=== PATIENT | female | born 1965 | race Caucasian/White ===

== ENCOUNTER 2020-01-14 09:31 | Outpatient (CLI) | payer OTHER, SELFPAY ==
--- NOTE | ~2020-01-14 | MM_ITS ---
EXAMINATION: MM screening maylin BI w chandan HISTORY: Screening TECHNIQUE: Craniocaudal and mediolateral oblique 3-D tomosynthesis images were obtained and synthetic 2-D images were generated. CAD analysis was submitted and interpreted. COMPARISON: Comparison to multiple prior studies sequentially, with oldest reviewed study dated 10/2015. BREAST PARENCHYMAL COMPOSITION: There are scattered areas of fibroglandular density. FINDINGS: There is no evidence of suspicious mass, calcification, or architectural distortion to sugg est malignancy in either breast. There has been no suspicious interval change. IMPRESSION: 1. No mammographic evidence of malignancy. 2. Recommend routine screening mammography in one year. BI-RADS Category 1: Negative Reviewed, dictated and finalized at location A.
== END 2020-01-14 09:32 | disposition home or self-care (01) ==
LOC: ANHIMG 09:32
PROVIDERS: PCP Nurse Practitioner Family; Visit Provider Nurse Practitioner Family
DX: Z12.31 Encounter for screening mammogram for malignant neoplasm of breast (principal)
CPT/HCPCS: 77063; 77067

== ENCOUNTER 2021-01-17 16:54 | Outpatient (CLI) | payer OTHER, SELFPAY ==
--- NOTE | ~2021-01-17 | MM_ITS ---
EXAMINATION: MM screening amylin BI w chandan HISTORY: Screening mammogram TECHNIQUE: Craniocaudal and mediolateral oblique 3-D tomosynthesis images were obtained and synthetic 2-D images were generated. CAD analysis was submitted and interpreted. COMPARISON: 01/14/2020 bilateral digital screening mammogram 05/08/2019 and 09/30/2018 diagnostic right mammogram and limited right breast ultrasound examination 09/16/2018, 02/13/2017 bilateral digital screening mammogram examinations BREAST PARENCHYMAL COMPOSITION: There are scattered areas of fibroglandular density. FINDINGS: Stable mild fibroglandular asymmetry. There is a stable circumscribed low-density 4 mm roun ded benign-appearing opacity opacity in the anterior mid inner right breast. There is no evidence of suspicious mass, calcification, or architectural distortion to suggest malignancy in either breast. T here has been no suspicious interval change. IMPRESSION: 1. No mammographic evidence of malignancy. 2. Recommend routine screening mammography in one year. BI-RADS Category 2: Benign finding(s). Reviewed, dictated and finalized at location A.
== END 2021-01-17 16:55 | disposition home or self-care (01) ==
LOC: ANHIMG 16:55
PROVIDERS: PCP Nurse Practitioner Family; Visit Provider Nurse Practitioner Family
DX: Z12.31 Encounter for screening mammogram for malignant neoplasm of breast (principal)
CPT/HCPCS: 77063; 77067

== ENCOUNTER 2022-04-04 10:25 | Outpatient (CLI) | payer OTHER, SELFPAY ==
--- NOTE | ~2022-04-04 | MM_ITS ---
EXAMINATION: MM screening maylin BI w chandan HISTORY: Screening TECHNIQUE: Craniocaudal and mediolateral oblique 3-D tomosynthesis images were obtained and synthetic 2-D images were generated. CAD analysis was submitted and interpreted. COMPARISON: Comparison to multiple prior studies sequentially, with oldest reviewed study dated 02/13. BREAST PARENCHYMAL COMPOSITION: There are scattered areas of fibroglandular density. FINDINGS: There is a new mass in the lower inner quadrant of the left breast measuring 4 mm. The righ t breast is stable without evidence for malignancy. IMPRESSION: 1. New left breast mass involving the lower inner quadrant anteriorly. 2. Additional mammographic views and possible breast ultrasound are recommended. BI-RADS Category 0: Incomplete: Needs additional imaging evaluation. Reviewed, dictated and finalized at location A. IMPRESSION: 1. New left breast mass involving the lower inner quadrant anteriorly. 2. Additional mammographic views and possible breast ultrasound are recommended . BI-RADS Category 0: Incomplete: Needs additional imaging evaluation.
== END 2022-04-04 10:26 | disposition home or self-care (01) ==
LOC: ANHIMG 10:28
PROVIDERS: PCP Nurse Practitioner Family; Visit Provider Nurse Practitioner Family
DX: Z12.31 Encounter for screening mammogram for malignant neoplasm of breast (principal); R92.8 Other abnormal and inconclusive findings on diagnostic imaging of breast
CPT/HCPCS: 77063; 77067

== ENCOUNTER 2022-05-01 13:10 | Outpatient (CLI) | payer OTHER, SELFPAY ==
--- NOTE | ~2022-05-01 | MMUS_ITS ---
EXAMINATION: MM diagnostic maylin LT w chandan, US breast LT limited HISTORY: New 4 mm left breast mass reported in anterior aspect of lower inner quadrant left breast on 04/04/2022 screening mammogram TECHNIQUE: Additional 3-D tomosynthesis images of the left breast were performed and synthetic 2-D im ages were generated. CAD analysis was submitted and interpreted. High resolution targeted 9:00 left b reast ultrasound was performed. COMPARISON: 04/04/2022 bilateral screening mammogram FINDINGS: MAMMOGRAPHIC FINDINGS: Approximately 3.7 x 5 mm circumscribed opacity is confirmed in the anterior aspect of the inner mid r ight breast at approximately 9:00 position 6 cm from nipple. The mammographic features suggest benign process, possibly cysts. ULTRASOUND: Left breast 9:00: 4.8 x 2.3 x 3.9 mm sonolucency with through transmission and no internal vascularit y, consistent with benign simple cyst. IMPRESSION: 1. Benign 4.8 mm cyst at left breast 9:00 position 6 cm from nipple 2. Routine annual mammographic screening is recommended BI-RADS Category 2: Benign finding(s). Reviewed, dictated and finalized at location A. 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 Benign 4.8 mm cyst at left breast 9:00 position 6 cm from nipple 2. Routine annual mammographic screening is recommended BI-RADS Category 2: Benign finding(s).
== END 2022-05-01 13:11 | disposition home or self-care (01) ==
PROVIDERS: PCP Nurse Practitioner Family; Visit Provider Nurse Practitioner Family
DX: R92.8 Other abnormal and inconclusive findings on diagnostic imaging of breast (principal); N60.02 Solitary cyst of left breast
CPT/HCPCS: 76642; 77061; 77065; G0279

== ENCOUNTER 2022-11-06 12:26 | Outpatient (CLI) | payer OTHER, SELFPAY ==
--- NOTE | ~2022-11-06 | DEXA_ITS ---
Bone Density Report Name: LENIN LEONARD Age: 56 Sex: Female Ethnicity: White Date of : 1965 Indication: postmenopausal; screening for osteoporosis; Referring Provider: MICHAEL, HAILEE Angulo Study: Bone densitometry was performed. Exam Date: November 06, 2022 Accession number: [id number] Bone Density: Region BMD T-score Z-score Classification AP Spine(L1, L2, L3) 0.913 -1.0 0.3 Normal Femoral Neck (Left) 0.650 -1.8 -0.6 Osteopenia Total Hip (Left) 0.840 -0.8 0.0 Normal Femoral Neck (Right) 0.640 -1.9 -0.7 Osteopenia Total Hip (Right) 0.816 -1.0 -0.2 Normal Total Hip Mean 0.828 -0.9 -0.1 Normal World Health Organization criteria for BMD impression classify patients as: Normal (T-score at or above -1.0), Osteopenia (T-score between -1.0 and -2.5), or Osteoporosis (T-score at or below -2.5). 10-year Fracture Risk(1): Major Osteoporotic Fracture 8.3% Hip Fracture 0.9% Reported Risk Factors: [place] (), Neck BMD=0.640, BMI=30.7 (1) FRAX(R) Version 3.08. Fracture probability calculated for an untreated patient. Fracture probability may be lower if the patient has received treatment. Clinical Information Provided by Patient: Has used the following medications: Vitamin D Patient maximum height was 62 Menopause Age: 53 Does not regularly consume dairy products Onset of menses at age 11 Number of children 0 Impression: The patient has low bone mass, based on the Right Femoral Neck T-score. The patient has an estimated ten-year risk of hip fracture of 0.9% and an estimated ten-year risk of major fracture of 8.3%, based on the WHO FRAX algorithm. Discussion: BONE DENSITY IS LOW AT ONE OR MORE SKELETAL SITES. This patient's lowest T-score is low at one or more skeletal sites. It meets the World Health Organization's (WHO) criteria for ?low bone mass? (T-score between -1.0 and -2.5). The patient's 10-year risk of fracture as calculated by FRAX is less than the threshold where pharmacological therapy is recommended by the National Osteoporosis Foundation (NOF). However, all treatment decisions require clinical judgment and consideration of individual patient factors, including patient preferences, comorbidities, previous drug use, risk factors not captured in the FRAX model (e.g., frailty, falls, vitamin D deficiency, increased bone turnover, interval significant decline in bone density) and possible under or overestimation of fracture risk by FRAX. The patient should follow a healthful lifestyle (good nutrition with adequate calcium and vitamin D, and appropriate weight-bearing exercise). Follow-Up: Consider repeating this study in 2 to 3 years to reassess this patient's status, or sooner if there is some new clinical indication. Reported by: [facility] on 11/06/2022 12:47:00 PM.
== END 2022-11-06 12:27 | disposition home or self-care (01) ==
PROVIDERS: PCP Nurse Practitioner Family; Visit Provider Nurse Practitioner Family
DX: M85.9 Disorder of bone density and structure, unspecified (principal); Z78.0 Asymptomatic menopausal state
CPT/HCPCS: 77080

== ENCOUNTER 2023-07-16 14:45 | Outpatient (CLI) | payer OTHER, SELFPAY ==
--- NOTE | ~2023-07-16 | MM_ITS ---
EXAMINATION: MM screening [facility] BI w chandan HISTORY: Screening mammogram TECHNIQUE: Craniocaudal and mediolateral oblique 3-D tomosynthesis images were obtained and synthetic 2-D images were generated. CAD analysis was submitted and interpreted. COMPARISON: 05/01/2022, 04/04/2022, 01/17/2021 BREAST PARENCHYMAL COMPOSITION: There are scattered areas of fibroglandular density. FINDINGS: No suspicious mass, calcification, or architectural distortion are identified in either jose ast to suggest malignancy. There has been no suspicious interval change. IMPRESSION: 1. No mammographic evidence of malignancy. 2. Recommend routine screening mammography in one year. BI-RADS Category 1: Negative Reviewed, dictated and finalized at location A. 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
== END 2023-07-16 14:46 | disposition home or self-care (01) ==
PROVIDERS: PCP Nurse Practitioner Family; Visit Provider Nurse Practitioner Family
DX: Z12.31 Encounter for screening mammogram for malignant neoplasm of breast (principal)
CPT/HCPCS: 77063; 77067

== ENCOUNTER 2024-06-05 09:57 | Outpatient (CLI) | payer OTHER, SELFPAY ==
--- NOTE | 2024-06-05 | EST_ITS ---
Patient Info Name: Manjula Wills Age: 58 years : 1965 Gender: Female Ht: 62 in Wt: 174 lbs BSA: 1.89 m2 HR: 67 bpm BP: 130 / 76 mmHg Exam Date: 06/05/2024 11:39 AM Exam Location: Echo Lab Patient Status: Outpatient Admit Date: 06/05/2024 Staff Ordering Physician: Gisela Meeks NP Attending Provider: Gisela Meeks NP Exercise Technologist: Melida Tejada RDCS Exercise Physician: Joseph Gan DO Exam Type: CA stress test treadmill Study Info A treadmill exercise stress test was performed. Summary 1. 1. Negative Thaddeus exercise stress test for ischemic ST changes by ECG criteria. 2. 2. Poor functional capacity, achieving 5.6 METs of workload. 3. 3. Rapid HR response to exercise. 4. 4. Appropriate HR recovery at 1 minute post exercise. 5. 5. No imaging with stress testing. 6. 6. Patient informed of the above results. Protocol: Thaddeus Stress ECG Details Stage: REST Duration (min): 0 min : 43 sec Speed (mph): 0.0 Grade (%): 0 HR (bpm): 69 SBP (mmHg): 130 DBP (mmHg): 76 METS: --- Stage: REST Duration (min): 7 min : 53 sec Speed (mph): 0.0 Grade (%): 0 HR (bpm): 71 SBP (mmHg): 130 DBP (mmHg): 76 METS: --- Stage: STAGE 1 Duration (min): 1 min : 0 sec Speed (mph): 1.7 Grade (%): 10 HR (bpm): 111 SBP (mmHg): 130 DBP (mmHg): 76 METS: --- Stage: STAGE 1 Duration (min): 2 min : 0 sec Speed (mph): 1.7 Grade (%): 10 HR (bpm): 133 SBP (mmHg): 130 DBP (mmHg): 76 METS: --- Stage: STAGE 1 Duration (min): 3 min : 0 sec Speed (mph): 1.7 Grade (%): 10 HR (bpm): 140 SBP (mmHg): 173 DBP (mmHg): 94 METS: --- Stage: STAGE 2 Duration (min): 0 min : 30 sec Speed (mph): 2.5 Grade (%): 12 HR (bpm): 144 SBP (mmHg): 173 DBP (mmHg): 94 METS: --- Stage: RECOVERY Duration (min): 0 min : 29 sec Speed (mph): 0.0 Grade (%): 0 HR (bpm): 136 SBP (mmHg): 173 DBP (mmHg): 94 METS: --- Stage: RECOVERY Duration (min): 1 min : 29 sec Speed (mph): 0.0 Grade (%): 0 HR (bpm): 112 SBP (mmHg): 144 DBP (mmHg): 90 METS: --- Stage: RECOVERY Duration (min): 2 min : 29 sec Speed (mph): 0.0 Grade (%): 0 HR (bpm): 98 SBP (mmHg): 144 DBP (mmHg): 90 METS: --- Stage: RECOVERY Duration (min): 3 min : 29 sec Speed (mph): 0.0 Grade (%): 0 HR (bpm): 84 SBP (mmHg): 164 DBP (mmHg): 87 METS: --- Stage: RECOVERY Duration (min): 4 min : 29 sec Speed (mph): 0.0 Grade (%): 0 HR (bpm): 83 SBP (mmHg): 164 DBP (mmHg): 87 METS: --- Stage: RECOVERY Duration (min): 4 min : 52 sec Speed (mph): 0.0 Grade (%): 0 HR (bpm): 80 SBP (mmHg): 135 DBP (mmHg): 84 METS: --- Rest HR: 71 bpm Peak HR: 144 bpm Rest Sys BP: 130 mmHg Peak Sys BP: 173 mmHg Max Pred HR: 160 bpm % Max Pred HR: 90 % Target HR: 136 bpm Max RPP: 24,912 bpm*mmHg Hall Score: -1 Termination Reason: Reached target heart rate or workload Cardiac Symptoms: Shortness of breath Max ST Seg Deviation: -1.00 mm Total Time: 3 min : 30 sec Rest Hanley BP: 76 mmHg Peak Hanley BP: 94 mmHg Angina Score: None Total METS: 5.6 Resting ECG Sinus rhythm. Stress ECG No ST changes. Arrhythmias None. Report Signatures
--- NOTE | 2024-06-05 11:20 | ECG_ITS ---
Test Date: 2024-06-05 12:05:57 Measurements Intervals [place] Rate: 73 P: 55 WV: 159 QRS: 4 QRSD: 74 T: 13 QT: 398 QTc: 439 Interpretive Statements SINUS RHYTHM NONSPECIFIC ST & T-WAVE ABNORMALITY No previous ECG available for comparison Electronically Signed On 06-05-2024 18:44:40 DOOR CLAMPER by Marsha Ambrose M.D.
== END 2024-06-05 09:58 | disposition home or self-care (01) ==
PROVIDERS: PCP Nurse Practitioner Family; Visit Provider Nurse Practitioner Family
DX: I10 Essential (primary) hypertension (principal); E78.5 Hyperlipidemia, unspecified; Z82.49 Family history of ischemic heart disease and other diseases of the circulatory system
CPT/HCPCS: 93005; 93017

== ENCOUNTER 2024-07-15 08:03 | Outpatient (CLI) | payer OTHER, SELFPAY ==
--- OUTSIDE RECORDS SUMMARY | 2024-07-16 21:34 | XMS_ITS | CONTINUITY OF CARE DOCUMENT ---
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
[2024-08-06 14:26] VITALS: BMI 31.8
--- NOTE | 2024-08-06 14:26 | P.SLEEP_ITS ---
Sleep Study - Home Unattended Date of Study: 07/15/24 Ordering Provider: Gisela Meeks NP Interpreting Provider: Therese Ott, DO Home Sleep Study Type: Watch PAT Height: 1.57 m Weight: 78.925 kg Body Mass Index: 31.8 Neck Circumference (inches): 15 [place]: 16 Reason for Sleep Study Daytime hypersomnia Sleep History The patient is a 58-year-old female that had a sleep study ordered by her primary care for evaluation of sleep apnea. The patient occasionally awakens from sleep short of breath. She occasionally awakens at night with heartburn, belching or cough. She occasionally snores but is rarely loud enough that others complain. She frequently has trouble sleeping when she has a cold. She occasionally wakes up gasping for air throughout the night. She occasionally has breathing problems at night observed by herself or others. She rarely sweats excessively at night. She occasionally has heart palpitations or irregular heartbeats during the night. She frequently falls asleep during the d ay but rarely while driving. She denies cataplexy. She occasionally has trouble at school or work due to sleepiness. She rarely feels unable to move while waking up or falling asleep. She occasionally experiences vivid dreamlike scenes upon awakening or falling asleep. She denies feeling afraid of going to sleep. She frequently has nightmares. She frequently remembers her dreams. She frequently has thoughts racing through her mind. She occasionally feels sad or depressed. She frequently has anxiety. He rarely has muscular tension. She occasionally notices parts of her body jerk. She frequently kicks during the night. She occasionally has crawling and aching feelings in her legs and occasionally has leg pain during the night. She denies grinding her teeth during sleep occasionally awakens with morning jaw pain. She is frequently bothered by pain during the day but rarely awakened by pain during the night. She occasionally wakes up feeling stiff in the morning. She occasionally wakes up with sore or achy muscles. She frequently wakes up with pain in the neck, spine and other joints. She goes to bed at 1:30 a.m. on both weekdays and weekends. It takes her less than 15 minutes to fall asleep. She wakes up twice throughout the night to urinate is able to fall back asleep within 45 minutes. She wakes up between 7-9 a.m. on both weekdays and weekends. She typically gets 7 8 hours of sleep per night. She will stay in bed for 30 minutes after waking up in the morning. She currently lives with her mother and brother. She denies consuming any caffeinated beverages within 2 hours of bedtime. She denies engaging in physical exercise before bedtime. She will read before falling asleep. She denies watching television before falling asleep. He will take naps in afternoon or the evening with they are not refreshing. She consumes up to 2 caffeinated beverages per day. She denies tobacco, alcohol and recreational drug use. REPLACED BY [facility] Past Medical History Medical History Prediabetes Hypersomnia Snoring Trigger finger Family history of early CAD Encounter to establish care Hypothyroid BMI 31.0-31.9,adult Osteopenia Thyroid disorder HTN (hypertension) Hyperlipidemia Asthma Arthritis Seasonal allergies Surgical History Surgical History Salivary gland tumor Family History Family History Sibling Family history of allergic disorder Hypertension Father Family history of chronic obstructive pulmonary disease Heart disease Thyroid disease Mother Asthma Depression Hypertension Cerebrovascular accident Sibling Heart disease Hypertension Thyroid disease Grandparent Asthma Cerebrovascular accident Grandparent Heart disease Social History Social History Smoking status: Never smoker Alcohol intake: never Substance use: never Medications Home Medications ?Medication ?Instructions ?Recorded ?Confirmed ?Type aspirin 81 mg tablet,delayed 81 mg PO DAILY 05/27/24 05/27/24 History release calcium carbonate 500 mg PO DAILY 05/27/24 05/27/24 History levothyroxine 50 mcg tablet 50 mcg PO DAILY #90 tabs 05/27/24 05/27/24 Rx loratadine-pseudoephedrine ER 10 1 tablet PO DAILY 05/27/24 05/27/24 History mg-240 mg tablet,extended [id number] (Claritin-D 24 Hour) losartan 50 mg tablet 50 mg PO DAILY #90 tabs 05/27/24 05/27/24 Rx simvastatin 40 mg tablet 40 mg PO DAILY #90 tabs 05/27/24 05/27/24 Rx Sleep Procedure The sleep study was completed using SemmxT a technically adequate device with seven channels: peripheral arterial tone, actigraphy, body position, snore, respiratory movement, pulse oximetry, sleep staging, and heart rate. Prior to using the device, the patient received verbal and written instructions for its application and was provided with the help desk phone number for additional telephonic instruction with 24-hour availability of qualified personnel to answer questions. The study was scored using CMS guidelines. Sleep Architecture The total recording time is 9 hrs, 25 min. The total sleep time is 8 hrs, 4 min. Sleep latency is 26 minutes. REM latency is 24 minutes. The patient had 12 episodes of waking. Sleep architecture shows 11.5% deep sleep, 80.6% light sleep, and (as % Total Sleep Time) showed NREM (Light 80.6%; Deep 11.5%), and a 7.9% stage REM. The patient spent 24.6% of total sleep time in the supine position. Sleep efficiency was 85.66. Respiratory Analysis The overall AHI (pAHI 3%:) is 7.3. The central AHI is 1.7. The AHI was 7.9 in NREM and 0.0 in REM sleep. The AHI was 15.9 in Supine and 4.5 in Non-supine sleep. Percent of Dante Mena respirations is 0.0. Oximetry Data The oxygen desaturation index (BUSTER 4%:) is 3.6. The mean saturation is 94%, and the lowest saturation is 85%. Time spent with saturation < 88% is 0.7 minutes. Snoring Profile Snoring average intensity is 41 dB. The patient snored above 45 decibels for 25.8 minutes, 5.3% of sleep time. Cardiac Profile The average pulse rate is 72 beats per minutes. The lowest pulse rate is 55 bpm. The highest pulse rate reported is 102 bpm. Atrial fibrillation was not detec freida. Premature beats occur <0.1 per minute. Assessment and Plan Assessment and Plan (1) Daytime hypersomnia: Code(s): G47.10 - Hypersomnia, unspecified Status: Acute Assessment and Plan: The patient had an overall AHI of 3.4 with desaturation down to 85%. This is not consistent with sleep disordered breathing. Due to the patient's excessive daytime sleepiness, further evaluation is warranted. I recommend the patient have a split study with the use of a hypnotic to ensure we obtain enough sleep data. The patient's sleep history is somewhat suggestive of Restless Leg Syndrome. I recommend that the patient have a serum ferritin drawn for evaluation of iron deficiency anemia. If the patient has a serum ferritin less than 75 ng/mL, I recommend starting a daily iron supplement and a Vitamin C supplement for better absorption. If the serum ferritin is greater than 75 ng/mL, I recommend starting a dopamine agonist and titrating the dose until symptoms resolve. There are nonpharmacological methods to treat limb movements including daily exercise, stretching calf muscles before bed, avoiding excessive amounts of caffeine and alcohol, vitamin B supplementation, magnesium lotion massaged into legs before bed, and use of a weighted blanket. Data The data obtained during this sleep study is adequate for interpretation. Certification This sleep study has been reviewed by a board certified sleep medicine physician.
== END 2024-07-16 13:15 | disposition home or self-care (01) ==
LOC: ANHCSM 08:05
PROVIDERS: PCP Nurse Practitioner Family; Visit Provider Nurse Practitioner Family
DX: G47.10 Hypersomnia, unspecified (principal); R06.83 Snoring
CPT/HCPCS: 95800

== ENCOUNTER 2024-09-03 09:56 | Outpatient (CLI) | payer OTHER, SELFPAY ==
--- NOTE | ~2024-09-03 | MM_ITS ---
EXAMINATION: MM screening maylin BI w chandan HISTORY: Screening mammogram TECHNIQUE: Craniocaudal and mediolateral oblique 3-D tomosynthesis images were obtained and synthetic 2-D images were generated. CAD analysis was submitted and interpreted. COMPARISON: 07/16/2023, 04/04/2022, 01/17/2021 BREAST PARENCHYMAL COMPOSITION:Not Dense. The breasts are almost entirely fatty FINDINGS: No suspicious mass, calcification, or architectural distortion are identified in either jose ast to suggest malignancy. There has been no suspicious interval change. IMPRESSION: No mammographic evidence of malignancy. Recommend routine screening mammography in one year. BI-RADS Category 1: Negative Reviewed, dictated and finalized at location .
--- OUTSIDE RECORDS SUMMARY | 2024-09-03 11:27 | XMS_ITS | CONTINUITY OF CARE DOCUMENT ---
Author Name kathy chavez Address Unknown Organization [facility] Office Address [address] [place] [address] Phone [phone] Care Team Providers Care Team Physician Name Role Phone Juanita Bradford MD Unavailable Hannah MONTESINOSP-Alicia Unavailable [phone] INSURANCE PROVIDERS Payer name Policy type / Coverage type [place] red democrat [place] MEDICA[employer] Medicaid [id number]
== END 2024-09-03 09:57 | disposition home or self-care (01) ==
LOC: ANHIMG 09:57
PROVIDERS: PCP Nurse Practitioner Family; Visit Provider Nurse Practitioner Family
DX: Z12.31 Encounter for screening mammogram for malignant neoplasm of breast (principal)
CPT/HCPCS: 77063; 77067

== ENCOUNTER 2025-01-21 08:20 | Outpatient (CLI) | payer OTHER, SELFPAY ==
--- NOTE | 2025-02-15 13:26 | P.SLEEP_ITS ---
Sleep Study Date of Study: 01/21/25 Ordering Provider: Gisela Meeks NP Interpreting Physician: Therese Ott DO Sleep Study Type: Split Polysomnogram Height: 1.57 m Weight: 77.111 kg Body Mass Index: 31.1 Neck Circumference (inches): 15 [place]: 16 Reason for Sleep Study Daytime hypersomnia Sleep History The patient is a 59-year-old female that had a sleep study ordered by her primary care for evaluation of sleep apnea. The patient occasionally awakens from sleep short of breath. She occasionally awakens at night with heartburn, belching or cough. She occasionally snores but is rarely loud enough that others complain. She frequently has trouble sleeping when she has a cold. She occasionally wakes up gasping for air throughout the night. She occasionally has breathing problems at night observed by herself or others. She rarely sweats excessively at night. She occasionally has heart palpitations or irregular heartbeats during the night. She frequently falls asleep during the day but rarely while driving. She denies cataplexy. She occasionally has trouble at school or work due to sleepiness. She rarely feels unable to move while waking up or falling asleep. She occasionally experiences vivid dreamlike scenes upon awakening or falling asleep. She denies feeling afraid of going to sleep. She frequently has nightmares. She frequently remembers her dreams. She frequently has thoughts racing through her mind. She occasionally feels sad or depressed. She frequently has anxiety. He rarely has muscular tension. She occasionally notices parts of her body jerk. She frequently kicks during the night. She occasionally has crawling and aching feelings in her legs and occasionally has leg pain during the night. She denies grinding her teeth during sleep occasionally awakens with morning jaw pain. She is frequently bothered by pain during the day but rarely awakened by pain during the night. She occasionally wakes up feeling stiff in the morning. She occasionally wakes up with sore or achy muscles. She frequently wakes up with pain in the neck, spine and other joints. She goes to bed at 1:30 a.m. on both weekdays and weekends. It takes her less than 15 minutes to fall asleep. She wakes up twice throughout the night to urinate is able to fall back asleep within 45 minutes. She wakes up between 7-9 a.m. on both weekdays and weekends. She typically gets 7 8 hours of sleep per night. She will stay in bed for 30 minutes after waking up in the morning. She currently lives with her mother and brother. She denies consuming any caffeinated beverages within 2 hours of bedtime. She denies engaging in physical exercise before bedtime. She will read before falling asleep. She denies watching television before falling asleep. He will take naps in afternoon or the evening with they are not refreshing. She consumes up to 2 caffeinated beverages per day. She denies tobacco, alcohol and recreational drug use. [facility] Past Medical History Medical History BMI 30.0-30.9,adult Restless leg Prediabetes Hypersomnia Snoring Trigger finger Family history of early CAD Encounter to establish care Hypothyroid BMI 31.0-31.9,adult Osteopenia Thyroid disorder HTN (hypertension) Hyperlipidemia Asthma Arthritis Seasonal allergies Surgical History Surgical History Salivary gland tumor Family History Family History Sibling Family history of allergic disorder Hypertension Father Family history of chronic obstructive pulmonary disease Heart disease Thyroid disease Mother Asthma Depression Hypertension Cerebrovascular accident Sibling Heart disease Hypertension Thyroid disease Grandparent Asthma Cerebrovascular accident Grandparent Heart disease Social History Social History Smoking status: Never smoker Alcohol intake: never Substance use: never Medications Home Medications ?Medication ?Instructions ?Recorded ?Confirmed ?Type aspirin 81 mg tablet,delayed 81 mg PO DAILY 05/27/24 0 12/11/24 History release calcium carbonate 500 mg PO DAILY 05/27/24 History levothyroxine 50 mcg tablet 50 mcg PO DAILY #90 tabs 1 07/28/23 12/11/24 Rx simvastatin 40 mg tablet 40 mg PO DAILY #90 tabs 10/1512/11/24 Rx eszopiclone 2 mg tablet (Lunesta) 2 mg PO ONCE #1 tabl et 08/07/24 12/11/24 Rx cetirizine 10 mg capsule (Zyrtec) 10 mg PO DAILY PRN 0 12/11/24 12/11/24 History losartan 50 mg tablet 25 mg (1/2 x 50 mg) PO DAILY #90 12/11/24 12/11/24 Rx tabs Sleep Procedure A full night split study using the [employer] SleepFanTrail multi-channel system recorded the standard physiologic parameters including EEG, EOG, submentalis EMG, anterior tibialis EMG, EKG, body position, nasal and oral airflow using nasal pressure sensor and thermistor.? Respiratory parameters of chest and abdominal movements were recorded with Respiratory Inductance Plethysmography belts. Oxygen saturation was recorded by pulse oximetry. Video monitoring was also performed. Sleep stages, periodic limb movements, and EEG arousals were scored in 30 second epochs according to the criteria of the AASM Scoring Manual. The Apnea-Hypopnea Index was calculated using [facility] guidelines for definition of hypopnea with 4% O2 desaturations while scoring respiratory events. Sleep Architecture During the diagnostic portion of the study, the total recording time was 206.7 minutes. The total sleep time was 154.5 minutes. Sleep latency was 6.7 minutes.? REM sleep was not achieved during this portion of the study. Sleep Efficiency was 74.7%. The patient had 24 awakenings for an awakening index of 9.3. Wake after sleep onset time was 45.5 minutes. The patient spent 20.0 minutes, 12.9% of total sleep time in Stage N1. The patient spent 123.5 minutes, 79.9% in Stage N2. The patient spent 11.0 minutes, 7.1% in Stage N3. The patient spent 0.0 minutes, 0.0% in Stage REM sleep. At 02:08:30 AM the patient was placed on PAP treatment and was titrated at pressures ranging from 5 cm H20 up to 12 cm H20. During the treatment portion of the study, the total recording time was 232.0 minutes.? The total sleep time was 163.0 minutes. Sleep latency was 12.5 minutes. REM latency was 56.5 minutes. Sleep Efficiency was 70.2%. Wake after Sleep Onset time was 56.5 minutes. The patient spent 27.0 minutes, 16.6% of total sleep time in Stage N1. The patient spent 107.5 minutes, 66.0% in Stage N2. The patient spent 0.5 minutes, 0.3% in Stage N3. The patient spent 28.0 minutes, 17.2% in Stage REM. Respiratory Analysis During the diagnostic portion of the study, the patient had 13 hypopneas and 5 obstructive apneas for an overall Apnea Hypopnea Index of 7.0 events per hour. The REM Apnea Hypopnea Index was 0. The NREM Apnea Hypopnea Index was 7.0. The patient had a Central Apnea Hypopnea Index of 0. There was no evidence of Dante-Mena Respirations. During the treatment portion of the study, the patient had 10 hypopneas, 10 obstructive apneas and 3 central apneas for an overall Apnea Hypopnea Index of 8.5 events per hour. The REM Apnea Hypopnea Index was 4.3. The NREM Apnea Hypopnea Index was 9.3. The patient had a Central Apnea Hypopnea Index of 1.1. There was no evidence of Dante-Mena Respirations. The patient was started on CPAP 5 cm H2O and titrated to CPAP 12 cm H2O due to obstructive apneas and hypopneas. The patient was able to fall asleep starting on CPAP 5 cm H2O. The patient was able to achieve REM sleep starting on CPAP 6 cm H2O. On CPAP 8 cm H2O, the patient spent 32.5 minutes in NREM with 4 hypopneas, resulting in an AHI of 7.4. On CPAP 9 cm H2O, the patient spent 9.5 minutes in NREM with no respiratory events, resulting in an AHI of 0. The patient had a sleep efficiency of 73% on 8 cm H2O and 100% on 9 cm H2O. Arousals During the diagnostic portion of the study, there were a total of 123 arousals for an arousal index of 47.8.? There were 39 respiratory arousals for an index of 15.1. There were 47 periodic limb movement arousals for an index of 18.3.? There were 14 isolated limb movement arousals for an index of 5.4. There were 25 spontaneous arousals for an index of 9.7. During the treatment portion of the study, there were a total of 97 arousals for an index of 35.7.? There were 29 respiratory arousals for an index of 10.7. There were 17 periodic limb movement arousals for an index of 6.3.? There were 10 isolated limb movement arousals for an index of 3.7. There were 41 spontaneous arousals for an index of 15.1. Periodic Limb Movements During the diagnostic portion of the study, the patient had 18 isolated limb movements with an index of 7.0. The patient had 142 periodic limb movements with an index of 55.1, which is elevated (normal < 15). The patient had a total of 160 limb movements with a total limb movement index of 62.1. During the treatment portion of the study, the patient had 13 isolated limb movements with an index of 4.8. The patient had 44 periodic limb movements with an index of 16.2, which is elevated (normal < 15). The patient had a total of 57 limb movements with a total limb movement index of 21.0. Oximetry Data During the diagnostic portion of the study, the patient had an average oxygen saturation of 95.7% in wake with a minimum oxygen saturation of 90% and a maximum oxygen saturation of 99%. The patient had an average oxygen saturation of 95.0% in sleep with a minimum oxygen saturation of 91.0% and a maximum oxygen saturation of 98.0%. The patient had 37 oxygen desaturations resulting in an Oxygen Desaturation Index of 14.4. The patient spent 0 minutes of total sleep time with an oxygen saturation less than 88%. During the treatment portion of the study, the patient had an average oxygen saturation of 96.3% in wake with a minimum oxygen saturation of 89.0% and a maximum oxygen saturation of 99.0%. The patient had an average oxygen saturation of 95.6% in sleep with a minimum oxygen saturation of 89.0% and a maximum oxygen saturation of 98.0%. The patient had 32 oxygen desaturations resulting in an Oxygen Desaturation Index of 11.8. The patient spent 0 minutes of total sleep time with an oxygen saturation less than 88%. Snoring Profile Mild to moderate snoring was present in the baseline portion of the study. The snoring resolved once the patient was titrated to CPAP 12 cm H2O. Cardiac Profile The EKG lead showed normal sinus rhythm. No arrhythmias or premature beats were seen. During the diagnostic portion of the study, the average pulse rate was 68.8 bpm.? The minimum pulse rate was 54.0 bpm. The maximum pulse rate was 90.0 bpm. During the treatment portion of the study, the average pulse rate was 59.9 bpm.? The minimum pulse rate was 50.0 bpm. The maximum pulse rate was 91.0 bpm. EEG Profile No signs of seizure activity seen. Assessment and Plan Assessment and Plan (1) IVONNE (obstructive sleep apnea): Code(s): G47.33 - Obstructive sleep apnea (adult) (pediatric) Status: Acute Assessment and Plan: In the baseline portion of the study, the patient had an overall AHI of 7.0 with desaturation down to 91%. This is consistent with mild sleep apnea. Due to the patient's hypertension, she qualifies for treatment. The patient was started on CPAP 5 cm H2O and titrated to CPAP 12 cm H2O due to obstructive apneas and hypopneas. I recommend that the patient be prescribed CPAP 9 cm H2O, size medium Resmed AirTouch F20 full face mask, CPAP filters/tubing and heated humidity. This should be used with all episodes of sleep.? Compliance should be reviewed within 31-90 days of starting therapy for usage greater than 4 hours per night greater than 70% of the nights. The patient should be asked about symptoms such as?excessive daytime sleepiness, quality of sleep, decreased nocturia, increased?mental functioning such as memory, mood, and concentration. The patient had a significant number of limb movements during the study with the majority being periodic in nature. The patient's sleep history is suggestive of Restless Leg Syndrome. I recommend that the patient have a serum ferritin drawn for evaluation of iron deficiency anemia. If the patient has a serum ferritin less than 75 ng/mL, I recommend starting a daily iron supplement and a Vitamin C supplement for better absorption. If the serum ferritin is greater than 75 ng/mL, I recommend starting a dopamine agonist and titrating the dose until symptoms resolve. There are nonpharmacological methods to treat limb movements including daily exercise, stretching calf muscles before bed, avoiding excessive amounts of caffeine and alcohol, vitamin B supplementation, magnesium lotion massaged into legs before bed, and use of a weighted blanket. Data The data obtained during this sleep study is adequate for interpretation. Certification This sleep study has been reviewed by a board certified sleep medicine physician.
[2025-02-16 12:23] VITALS: BMI 31.1
== END 2025-01-22 06:46 | disposition home or self-care (01) ==
LOC: ANHCSM 08:21
PROVIDERS: PCP Nurse Practitioner Family; Visit Provider Nurse Practitioner Family
DX: G47.33 Obstructive sleep apnea (adult) (pediatric) (principal); G47.10 Hypersomnia, unspecified
CPT/HCPCS: 95811